=== PATIENT | female | born 1945 | race Caucasian/White ===

== ENCOUNTER 2023-03-22 06:31 | Day surgery (SDC) | payer OTHER, MEDICARE ==
[2023-03-20 14:20] VITALS: BMI 24.3
[2023-03-22] MEDS ORDERED: LIDOCAINE HCL/PF 2% SDV 5ML VIAL ONE (07:30)
[2023-03-22] MEDS ORDERED: PROPOFOL 160 ML ONE (07:30)
[2023-03-22] MEDS ORDERED: PHENYLEPHRINE HCL 10 MG/1 ML SINGLE DOSE VIAL ONE (08:24)
[2023-03-22 09:13] VITALS: TEMP 97.8
[2023-03-22 09:36] VITALS: BP 159/83; PULSE 63; RESP 18
== END 2023-03-22 10:54 | disposition home or self-care (01) ==
LOC: FASU-ENDO 06:31
PROVIDERS: ATTEND Internal Medicine Gastroenterology
PROC: 0DBN8ZX Excision of Sigmoid Colon, Via Natural or Artificial Opening Endoscopic, Diagnostic (ICD-10-PCS; 2023-03-22)
PROC: 0DBP8ZX Excision of Rectum, Via Natural or Artificial Opening Endoscopic, Diagnostic (ICD-10-PCS; principal; 2023-03-22 08:45)
DX: Z12.11 Encounter for screening for malignant neoplasm of colon (principal); K63.5 Polyp of colon; K64.1 Second degree hemorrhoids; K62.1 Rectal polyp
CPT/HCPCS: 88305-TC